=== PATIENT | male | born 1945 | race Caucasian/White ===

== ENCOUNTER 2021-07-31 15:10 | Emergency (ER) | payer MEDICARE, SELFPAY ==
[2021-07-31] VITALS (11 sets, daily range): BP systolic 110–187; BP diastolic 67–97; PULSE 49–71; RESP 16–36; TEMP 36.9; O2SAT 95–99
--- NOTE | 2021-07-31 16:05 | DI.US.S_ITS ---
PROCEDURE: US PERIPH VENOUS UP EXTREM LT INDICATIONS: LUMP/ ARM SWELLING TECHNIQUE: Real-time imaging, as well as color and pulse Doppler interrogation, was performed of the left upper extremity deep veins from the inferior neck to the antecubital fossa. COMPARISON: None. FINDINGS: Extensive left upper extremity deep venous thrombosis can be seen, involving the subclavian vein through the axillary vein involving the proximal basilic vein. Left axillary lymphadenopathy can be seen at the area of palpable abnormality. IMPRESSION: Extensive left upper extremity deep venous thrombosis can be seen. Enlarged left axillary lymph nodes are seen. Note: Concordant preliminary findings given by the aerial photographer upon the completion of the examination to Anival Cheng at 4:40 p.m. on July 31, 2021. Dictated by: Bobby Bahena M.D. on 07/31/2021 at 15:49 Approved by: Bobby Bahena M.D. on 07/31/2021 at 15:50
--- NOTE | 2021-07-31 16:06 | ED_ITS ---
HPI - Skin/Abscess/Foreign Bdy <Anival Cheng PA-C - Last Filed: 07/31/21 19:42> General Chief complaint: Skin/Abscess/Foreign Body Stated complaint: SWOLLEN LYMP NODE UNDER LEFT ARM PIT PAIN Time Seen by Provider: 07/31/21 15:57 Source: patient Mode of arrival: Ambulatory History of Present Illness HPI narrative: Patient presents to the ED complaining of swollen area under his left armpit that started 2 days ago. He noticed it getting progressively worse it is been slightly tender to touch no prior history no recent trauma reported no change in his weight. Related Data Previous Rx's Medication Instructions Recorded apixaban 5 mg (74 tabs) tablets in 5 mg PO BID #74 ea 07/31/21 a dose pack (EliPulsar DVT-PE Treat 30D Start) Allergies Allergy/AdvReac Type Severity Reaction Status Date / Time No Known Drug Allergies Allergy Unverified 07/31/21 14:42 Review of Systems <Anival Cheng PA-C - Last Filed: 07/31/21 19:42> Review of Systems ROS Unobtainable: All systems reviewed & are unremarkable except as noted in HPI and below Constitutional Constitutional: Denies chills, Denies fatigue, Denies fever(s), Denies frequent falls, Denies lethargy and Denies weakness Eyes Eyes: Denies change in vision, Denies eye discharge, Denies irritation and Denies loss of vision ENT Ears, Nose, Mouth, and Throat: Denies change in voice, Denies dizziness, Denies neck pain, Denies sore throat and Denies throat swelling Cardiovascular Cardiovascular: Denies chest pain, Denies irregular heart rhythm, Denies lightheadedness, Denies palpitations, Denies dyspnea, Denies dyspnea on exertion and Denies orthopnea Respiratory Respiratory: Denies cough, Denies dyspnea, Denies dyspnea on exertion and Denies wheezing Gastrointestinal Gastrointestinal: Denies abdominal pain, Denies change in bowel habits, Denies diarrhea, Denies nausea and Denies vomiting Genitourinary Genitourinary: Denies hematuria, Denies flank pain, Denies urinary incontinence and Denies urinary urgency Musculoskeletal Musculoskeletal: Denies back pain, Denies muscle weakness, Denies neck pain, Denies numbness and Denies tingling Integumentary/Breasts Skin/Breast: Reports furuncle, Denies pruritus, Denies erythema, Denies rash and Denies wounds Neurologic Neurologic: Denies behavioral changes, Denies confusion, Denies dizziness, Denies frequent falls, Denies loss of vision, Denies numbness, Denies tingling and Denies weakness Psychiatric Psychiatric: Denies anxiety, Denies behavioral changes, Denies confusion, Denies depression, Denies homicidal ideation and Denies suicidal ideation Endocrine Endocrine: Denies fatigue, Denies flushing and Denies palpitations Hematologic/Lymphatic Hematologic/Lymphatic: Denies easy bruising Allergic/Immunologic Allergic/Immunologic: Denies urticaria, Denies throat swelling and Denies wheezing Patient History <Anival Cheng PA-C - Last Filed: 07/31/21 19:42> Social History Smoking Status: Never smoker Smoking Status: Never smoker Exam <Anival Cheng PA-C - Last Filed: 07/31/21 19:42> Initial Vital Signs Initial Vital Signs: Vital Signs Temperature 98.4 F 07/31/21 15:14 Pulse Rate 50 L 07/31/21 15:14 Respiratory Rate 18 07/31/21 15:14 Blood Pressure 152/67 H 07/31/21 15:14 Pulse Oximetry 95 07/31/21 15:14 Const General: cooperative, healthy appearing, comfortable and well developed Nutritional Appearance: average body habitus Skin General: no rashes or lesions noted, elasticity normal and turgor normal Other: small swollen area under the left arm pit, no fluid wave noted, tender to touch,no discharge or evidence of infection. <Taylor Seay DO - Last Filed: 08/01/21 01:02> Initial Vital Signs Initial Vital Signs: Vital Signs Temperature 98.4 F 07/31/21 15:14 Pulse Rate 50 L 07/31/21 15:14 Respiratory Rate 18 07/31/21 15:14 Blood Pressure 152/67 H 07/31/21 15:14 Pulse Oximetry 95 07/31/21 15:14 Course <Anival Cheng PA-C - Last Filed: 07/31/21 19:42> Orders Ordered: ED Orders 07/31/21 16:05 US periph venous up extrem lt Stat 07/31/21 17:05 CT angio chest PE protocol Stat EKG-12 Lead Stat 07/31/21 17:10 BNP [NT-proBNP (BNP-Adult 18+)] Stat CBC Auto Diff [Complete Blood Count AUTO DIFF] Stat CMP [Comprehensive Metabolic Panel] Stat Troponin & CK Cardiac Panel Stat 07/31/21 19:40 COVID19 -Nasal swab/Pre-Proc Stat Discontinued Medications Apixaban (Apixaban 5 Mg Tablet) 5 mg PO NOW ONE Stop: 07/31/21 19:43 Last Admin: 07/31/21 19:54 Dose: 5 mg Documented by: [email or web address] Vital Signs Vital signs: Vital Signs - 8 hr 07/31/21 17:29 07/31/21 17:35 07/31/21 18:00 Pulse Rate 50 L 50 L 50 L Respiratory Rate 18 20 Blood Pressure 163/84 H 149/89 H Pulse Oximetry 98 97 95 07/31/21 18:30 07/31/21 18:50 07/31/21 19:00 Pulse Rate 50 L 50 L 50 L Respiratory Rate 18 22 25 H Blood Pressure 187/89 H Pulse Oximetry 95 97 95 07/31/21 19:01 07/31/21 19:30 07/31/21 19:31 Pulse Rate 50 L 49 L 50 L Respiratory Rate 22 31 H 36 H Blood Pressure 110/81 172/97 H Pulse Oximetry 96 95 95 07/31/21 19:58 Pulse Rate 71 Respiratory Rate 16 Blood Pressure 172/97 H Pulse Oximetry 99 <Taylor Seay, - Last Filed: 08/01/21 01:02> Orders Ordered: ED Orders 07/31/21 16:05 US periph venous up extrem lt Stat 07/31/21 17:05 CT angio chest PE protocol Stat EKG-12 Lead Stat 07/31/21 17:10 BNP [NT-proBNP (BNP-Adult 18+)] Stat CBC Auto Diff [Complete Blood Count AUTO DIFF] Stat CMP [Comprehensive Metabolic Panel] Stat Troponin & CK Cardiac Panel Stat 07/31/21 19:40 COVID19 -Nasal swab/Pre-Proc Stat Discontinued Medications Apixaban (Apixaban 5 Mg Tablet) 5 mg PO NOW ONE Stop: 07/31/21 19:43 Last Admin: 07/31/21 19:54 Dose: 5 mg Documented by: [email or web address] Vital Signs Vital signs: Vital Signs - 8 hr 07/31/21 17:29 07/31/21 17:35 07/31/21 18:00 Pulse Rate 50 L 50 L 50 L Respiratory Rate 18 20 Blood Pressure 163/84 H 149/89 H Pulse Oximetry 98 97 95 07/31/21 18:30 07/31/21 18:50 07/31/21 19:00 Pulse Rate 50 L 50 L 50 L Respiratory Rate 18 22 25 H Blood Pressure 187/89 H Pulse Oximetry 95 97 95 07/31/21 19:01 07/31/21 19:30 07/31/21 19:31 Pulse Rate 50 L 49 L 50 L Respiratory Rate 22 31 H 36 H Blood Pressure 110/81 172/97 H Pulse Oximetry 96 95 95 07/31/21 19:58 Pulse Rate 71 Respiratory Rate 16 Blood Pressure 172/97 H Pulse Oximetry 99 MDM - Skin/Abscess/Foreign Bdy <Anival Cheng PA-C - Last Filed: 07/31/21 19:42> Differential Diagnosis Differential diagnosis: Likely other Lab Data Result diagrams: 07/31/21 17:10 07/31/21 17:10 Labs: Lab Results 07/31/21 07/31/21 07/31/21 Range/Units 17:10 17:10 19:40 WBC 4.3 L (4.5-11.0) X10^3/uL RBC 4.58 (4.5-5.9) X10^6/uL Hgb 13.5 (13.5-17.5) g/dL Hct 39.8 L (41-53) % MCV 87.0 (80-100) fL MCH 29.4 (26-34) PG MCHC 33.8 (30-36) % RDW 14.5 (11.6-14.8) % Plt Count 159 (150-400) X10^3/uL Neut % (Auto) 57.2 (50-75) % Lymph % (Auto) 26.8 (25-40) % [place] % (Auto) 12.6 (3-14) % Eos % (Auto) 2.6 (2-4) % Baso % (Auto) 0.8 (0-2) % Neut # (Auto) 2500 (4933-3320) /uL Lymph # (Auto) 1200 (1617-2631) /uL [place] # (Auto) 500 (0-900) /uL Eos # (Auto) 100 (0-450) /uL Baso # (Auto) 0 (0-100) /uL Sodium 139 (137-145) mmol/L Potassium 4.0 (3.4-5.1) mmol/L Chloride 104 (98-107) mmol/L Carbon Dioxide 34 H (22-32) mmol/L BUN 15 (9-20) mg/dL Creatinine 0.78 (0.66-1.25) mg/dL Estimated GFR > 60.0 (>60) mL/min BUN/Creatinine Ratio 19.2 (6-22) Glucose 95 (80-110) mg/dL Calcium 8.8 (8.4-10.2) mg/dL Total Bilirubin 0.7 (0.2-1.3) mg/dL AST 30 (17-59) IU/L ALT 16 (<50) IU/L Alkaline Phosphatase 102 (38-126) U/L Total Creatine Kinase 205 H (55-170) U/L CK-MB (CK-2) 3.90 H (<2.37) ng/mL CK-MB (CK-2) Rel Index 1.9 (1.5-5.0) % Troponin I < 0.012 (0.01-0.034) ng/mL NT-Pro-B Natriuret Pep 266 (<450) pg/mL Total Protein 6.9 (6.3-8.2) g/dL Albumin 4.0 (3.5-5.0) g/dL Globulin 2.9 (1.7-4.1) g/dL Albumin/Globulin Ratio 1.4 (1.0-2.8) SARS-CoV-2 (PCR) Negative (Negative) Imaging Data US - DVT: Radiologist's Impression: PROCEDURE:? US PERIPH VENOUS UP EXTREM LT ? INDICATIONS:? LUMP/ ARM SWELLING ? TECHNIQUE:? Real-time imaging, as well as color and pulse Doppler interrogation, was performed of the left upper extremity deep veins from the inferior neck to the antecubital fossa.? ? COMPARISON:? None. ? FINDINGS:? Extensive left upper extremity deep venous thrombosis can be seen, involving the subclavian vein through the axillary vein involving the proximal basilic vein. ? Left axillary lymphadenopathy can be seen at the area of palpable abnormality. ? ? IMPRESSION:? Extensive left upper extremity deep venous thrombosis can be seen. ? Enlarged left axillary lymph nodes are seen. ? Note: Concordant preliminary findings given by the adjunct history instructor upon the completion of the examination to Anival Cheng at 4:40 p.m. on July 31, 2021. ? ? ? Dictated by: Bobby Bahena M.D. on 07/31/2021 at 15:49 ? ? Approved by: Bobby Bahena M.D. on 07/31/2021 at 15:50?? CTA-Chest: Radiologist's Impression: PROCEDURE:? CT ANGIO CHEST PE PROTOCOL ? INDICATIONS:? Bloodclot ? TECHNIQUE:? After the administration of intravenous contrast, 2 mm thick sections acquired from the pulmonary apices to the posterior costophrenic angles.? 3-dimensional maximum intensity projection (MIP) coronal and sagittal reformats were then acquired through the thorax.? For radiation dose reduction, the following was used:? automated exposure control, adjustment of mA and/or kV according to patient size.? ? COMPARISON:? None. ? FINDINGS:? Image quality:? Excellent.? ? Pulmonary arteries:? Pulmonary arteries are normal in size, and demonstrate no intraluminal filling defects to suggest central pulmonary embolism.? No convincing peripheral pulmonary embolus. ? Lungs and pleura:? There are scattered peripheral patches of ground-glass opacity and occasional bibasilar irregular septal thickening versus linear atelectatic changes.? There are no dense consolidations or pleural effusions.? The airways are patent.? Mild bilateral lower lung peribronchial thickening. ? Mediastinum:? Mild cardiomegaly.? Moderate coronary artery calcification.? Dual lead pacemaker present.? No intraventricular septal bowing.? Small pericardial effusion.? The aorta is normal caliber.? Proximal great vessels are normal.? The esophagus is normal without hiatal hernia. ? Bones and chest wall:? There is moderate fat stranding in the left axilla and enlargement of left axillary and subclavian vasculature.? Numerous lymph nodes are present.? There is mild overlying soft tissue swelling.? Left chest power pack is present.? No acute fractures or suspicious bone lesions.? Multilevel degenerative disc and endplate changes throughout the spine.? Diminutive thyroid gland. ? Abdomen:? Visualized upper abdominal solid organs appear normal in the early arterial phase of enhancement.? ? IMPRESSION:? ? 1. No visible central pulmonary emboli and no convincing peripheral emboli. ? 2. Mild cardiomegaly with small pericardial effusion.? No evidence of right heart strain. ? 3. Scattered minor peripheral ground-glass opacities and linear interstitial/septal thickening may be atelectatic changes, less likely peripheral ischemic changes.? No pleural effusion. ? 4. Soft tissue thickening and edema involving the left axilla and enlargement of left axillary vasculature consistent with known upper extremity thrombus. ? 5. Left-sided pacemaker present.? ? ? Dictated by: Leta Early M.D. on 07/31/2021 at 18:34 ? ? Approved by: Leta Early M.D. on 07/31/2021 at 18:48?? [facility] Narrative Medical decision making narrative: Patient was evaluated today for swelling of the left armpit. Ultrasound showed evidence of a thrombus formation from the subclavian to the left axillary vein. A CTA of the chest was ordered which confirmed the thrombus. Patient had cardiac enzymes and EKG which all appear to be within normal limits. A consult to the cardiology group of Dr. MEZA was contacted and as a result they were agreeable to to start the patient on anticoagulant therapy regimen and discharge the patient to follow up outpatient. After discussing the findings with the patient he was agreeable and will discharge him home start him on Eliquis 5 mg p.o. b.i.d. <Taylor Seay, DO - Last Filed: 08/01/21 01:02> Lab Data Labs: Lab Results 07/31/21 07/31/21 07/31/21 Range/Units 17:10 17:10 19:40 WBC 4.3 L (4.5-11.0) X10^3/uL RBC 4.58 (4.5-5.9) X10^6/uL Hgb 13.5 (13.5-17.5) g/dL Hct 39.8 L (41-53) % MCV 87.0 (80-100) fL MCH 29.4 (26-34) PG MCHC 33.8 (30-36) % RDW 14.5 (11.6-14.8) % Plt Count 159 (150-400) X10^3/uL Neut % (Auto) 57.2 (50-75) % Lymph % (Auto) 26.8 (25-40) % [place] % (Auto) 12.6 (3-14) % Eos % (Auto) 2.6 (2-4) % Baso % (Auto) 0.8 (0-2) % Neut # (Auto) 2500 (6519-9723) /uL Lymph # (Auto) 1200 (8855-4370) /uL [place] # (Auto) 500 (0-900) /uL Eos # (Auto) 100 (0-450) /uL Baso # (Auto) 0 (0-100) /uL Sodium 139 (137-145) mmol/L Potassium 4.0 (3.4-5.1) mmol/L Chloride 104 (98-107) mmol/L Carbon Dioxide 34 H (22-32) mmol/L BUN 15 (9-20) mg/dL Creatinine 0.78 (0.66-1.25) mg/dL Estimated GFR > 60.0 (>60) mL/min BUN/Creatinine Ratio 19.2 (6-22) Glucose 95 (80-110) mg/dL Calcium 8.8 (8.4-10.2) mg/dL Total Bilirubin 0.7 (0.2-1.3) mg/dL AST 30 (17-59) IU/L ALT 16 (<50) IU/L Alkaline Phosphatase 102 (38-126) U/L Total Creatine Kinase 205 H (55-170) U/L CK-MB (CK-2) 3.90 H (<2.37) ng/mL CK-MB (CK-2) Rel Index 1.9 (1.5-5.0) % Troponin I < 0.012 (0.01-0.034) ng/mL NT-Pro-B Natriuret Pep 266 (<450) pg/mL Total Protein 6.9 (6.3-8.2) g/dL Albumin 4.0 (3.5-5.0) g/dL Globulin 2.9 (1.7-4.1) g/dL Albumin/Globulin Ratio 1.4 (1.0-2.8) SARS-CoV-2 (PCR) Negative (Negative) Discharge Plan Departure Patient Disposition: Home Clinical Impression: Thrombus Instructions: DI for Deep Vein Thrombosis Activity Restrictions/Additional Instructions: The prescription for Eliquis was sent over to your pharmacy and you can begin taking that medication in the a.m. you can contact your PCP or Cardiology group for further follow-up or you can return to the emergency room for any further concerns. Prescriptions: New Eliquis DVT-PE Treat 30D Start 5 mg (74 tabs) tablets,dose pack 5 mg PO BID Qty: 74 0RF <Taylor Seay, DO - Last Filed: 08/01/21 01:02> Cosign ED Attending Lonnieature Attestation: I was immediately available in the department for consultation. Documentation has been reviewed. Patient case was discussed with myself. Imaging including ultrasound, CT and lab work was reviewed. Patient scoring for HESTIA and PESI reviewed. Patient appears appropropriate to initiate oral anticoagulation in the department. Discharged home with prescription and close follow-up arranged after discussion with Cardiology review of the recommendations as well.
--- NOTE | 2021-07-31 17:05 | DI.CT.S_ITS ---
PROCEDURE: CT ANGIO CHEST PE PROTOCOL INDICATIONS: Bloodclot TECHNIQUE: After the administration of intravenous contrast, 2 mm thick sections acquired from the pulmonary apices to the posterior costophrenic angles. 3-dimensional maximum intensity projection (MIP) coronal and sagittal reformats were then acquired through the thorax. For radiation dose reduction, the following was used: automated exposure control, adjustment of mA and/or kV according to patient size. COMPARISON: None. FINDINGS: Image quality: Excellent. Pulmonary arteries: Pulmonary arteries are normal in size, and demonstrate no intraluminal filling defects to suggest central pulmonary embolism. No convincing peripheral pulmonary embolus. Lungs and pleura: There are scattered peripheral patches of ground-glass opacity and occasional bibasilar irregular septal thickening versus linear atelectatic changes. There are no dense consolidations or pleural effusions. The airways are patent. Mild bilateral lower lung peribronchial thickening. Mediastinum: Mild cardiomegaly. Moderate coronary artery calcification. Dual lead pacemaker present. No intraventricular septal bowing. Small pericardial effusion. The aorta is normal caliber. Proximal great vessels are normal. The esophagus is normal without hiatal hernia. Bones and chest wall: There is moderate fat stranding in the left axilla and enlargement of left axillary and subclavian vasculature. Numerous lymph nodes are present. There is mild overlying soft tissue swelling. Left chest power pack is present. No acute fractures or suspicious bone lesions. Multilevel degenerative disc and endplate changes throughout the spine. Diminutive thyroid gland. Abdomen: Visualized upper abdominal solid organs appear normal in the early arterial phase of enhancement. IMPRESSION: 1. No visible central pulmonary emboli and no convincing peripheral emboli. 2. Mild cardiomegaly with small pericardial effusion. No evidence of right heart strain. 3. Scattered minor peripheral ground-glass opacities and linear interstitial/septal thickening may be atelectatic changes, less likely peripheral ischemic changes. No pleural effusion. 4. Soft tissue thickening and edema involving the left axilla and enlargement of left axillary vasculature consistent with known upper extremity thrombus. 5. Left-sided pacemaker present. Dictated by: Leta Early M.D. on 07/31/2021 at 18:34 Approved by: Leta Early M.D. on 07/31/2021 at 18:48
[2021-07-31 17:23] LABS: Add Manual Diff / Slide Review NO; Basophils Absolute Auto 0 /uL (0-100); Basophils Percent Auto 0.8 % (0-2); Eosinophils Absolute Auto 100 /uL (0-450); Eosinophils Percent Auto 2.6 % (2-4); Hematocrit 39.8 % (41-53); Hemoglobin 13.5 g/dL (13.5-17.5); Lymphocytes Absolute Auto 1200 /uL (1100-4500); Lymphocytes Percent Auto 26.8 % (25-40); Mean Corpuscular HGB Conc 33.8 % (30-36); Mean Corpuscular Hemoglobin 29.4 PG (26-34); Monocytes Absolute Auto 500 /uL (0-900); Monocytes Percent Auto 12.6 % (3-14); Neutrophils Absolute Auto 2500 /uL (1500-7000); Neutrophils Percent Auto 57.2 % (50-75); Platelet Count 159 X10^3/uL (150-400); Red Blood Cell Count 4.58 X10^6/uL (4.5-5.9); Red Cell Distribution Width 14.5 % (11.6-14.8); White Blood Cell Count 4.3 X10^3/uL (4.5-11.0)
[2021-07-31 17:34] LABS: BUN Creatinine Ratio 19.2 (6-22); Blood Urea Nitrogen 15 mg/dL (9-20); Carbon Dioxide 34 mmol/L (22-32); Chloride 104 mmol/L (98-107); Creatine Kinase 205 U/L (55-170); Estimated Glomerular Filt Rate > 60.0 mL/min (>60); Glucose 95 mg/dL (80-110); Sodium 139 mmol/L (137-145)
[2021-07-31 17:35] LABS: Alanine Aminotransferase 16 IU/L (<50); Albumin Globulin Ratio 1.4 (1.0-2.8); Alkaline Phosphatase 102 U/L (38-126); Aspartate Aminotransferase 30 IU/L (17-59); Bilirubin Total 0.7 mg/dL (0.2-1.3); Calcium 8.8 mg/dL (8.4-10.2); Globulin 2.9 g/dL (1.7-4.1); HEMOLYSIS < 15 (0-50); Total Protein 6.9 g/dL (6.3-8.2)
[2021-07-31 17:46] LABS: NT-proBNP (BNP-Adult 18+) 266 pg/mL (<450); Troponin I < 0.012 ng/mL (0.01-0.034)
[2021-07-31 17:49] LABS: CKMB % Relative Index 1.9 % (1.5-5.0)
[2021-07-31] MEDS: APIXABAN 5 MG TABLET PO (19:54)
[2021-07-31 20:16] LABS: COVID19 -Nasal RAPID Negative (Negative)
== END 2021-07-31 19:58 | disposition home or self-care (01) ==
PROVIDERS: Emergency Provider Physician Assistant
DX: I82.890 Acute embolism and thrombosis of other specified veins (principal); R07.9 Chest pain, unspecified; Z20.822 Contact with and (suspected) exposure to COVID-19
CPT/HCPCS: 36415; 71275; 80053; 82550; 82553; 83880; 84484; 85025; 87635; 93005; 93010; 93971; 99284; C9803; Q9967

== ENCOUNTER 2022-09-18 14:08 | Emergency (ER) | payer MEDICARE, SELFPAY ==
[2022-09-18] VITALS (13 sets, daily range): BP systolic 127–178; BP diastolic 81–113; PULSE 63–81; RESP 12–32; TEMP 36.7; O2SAT 91–95; BMI 26.1
--- NOTE | 2022-09-18 14:18 | DI.RAD.S_ITS ---
PROCEDURE: XR CHEST 1V INDICATIONS: Shortness of breath TECHNIQUE: One view of the chest was acquired. COMPARISON: None. FINDINGS: Surgical changes and devices: Left-sided cardiac pacer device is in place. Surgical clips in the right axilla. Lungs and pleura: Mild diffuse interstitial prominence. No focal consolidation. No pleural effusions or pneumothorax. Mediastinum: Mediastinal contours appear normal. Heart size is enlarged. Bones and chest wall: No suspicious bony lesions. Overlying soft tissues appear unremarkable. IMPRESSION: Cardiomegaly with mild diffuse interstitial prominence. Findings may represent early pulmonary edema/CHF. Infectious or inflammatory process not excluded if clinically appropriate. No focal consolidation. Dictated by: Minh Saini M.D. on 09/18/2022 at 16:16 Approved by: Minh Saini M.D. on 09/18/2022 at 16:18
--- NOTE | 2022-09-18 14:29 | ED.SOB ---
HPI - SOB/Dyspnea General Chief Complaint: Shortness of Breath/Dyspnea Stated Complaint: SOB, hx blood clot, sent from primary Time Seen by Provider: 09/18/22 14:24 Source: patient Mode of arrival: Ambulatory Limitations: no limitations History of Present Illness HPI Narrative: This 69-year-old gentleman has a history of AFib, and history of pacemaker. He developed a left upper extremity DVT when the pacemaker was placed. A Watchman was placed about 7 months ago. Eliquis was stopped about 2 weeks ago. He has no history of NE, no history of CHF. He passed a nuclear stress test just a few weeks ago. He is developed dyspnea. Dyspnea seemed to increase about 3 days ago, any more severe in the last 24 hours. He has significant dyspnea with any degree of exertion. He is not having chest pain or palpitations. He denies orthopnea or peripheral edema. He denies hemoptysis. He has not experienced syncope. He is no dyspnea at rest. He denies recent illness. He has no headache, rhinorrhea or sore throat. He is not coughing. He has no fever or chills. He developed significant dyspnea this morning, simply my making the bed. Related Data Previous Rx's Medication Instructions Recorded apixaban 5 mg (74 tabs) tablets in 5 mg PO BID #74 ea 07/31/21 a dose pack (Eliquis DVT-PE Treat 30D Start) furosemide 20 mg tablet (Lasix) 20 mg PO DAILY #30 tabs 09/18/22 Allergies Allergy/AdvReac Type Severity Reaction Status Date / Time No Known Drug Allergies Allergy Verified 09/18/22 14:23 Review of Systems Review of Systems ROS Unobtainable: All systems reviewed & are unremarkable except as noted in HPI and below Constitutional Constitutional: Denies anorexia, Denies body ache(s), Denies fatigue, Denies fever(s) and Denies headache(s) Eyes Eyes: Denies change in vision ENT Ears, Nose, Mouth, and Throat: Denies vertigo, Denies dizziness, Denies facial pain, Denies headache(s), Denies nasal congestion and Denies sore throat Cardiovascular Cardiovascular: Denies chest pain, Denies syncope, Denies pedal edema, Denies irregular heart rhythm, Denies leg edema and Reports dyspnea on exertion Respiratory Respiratory: Denies chest congestion, Denies cough and Reports dyspnea on exertion Gastrointestinal Gastrointestinal: Denies abdominal pain Genitourinary Genitourinary: Denies dysuria Musculoskeletal Musculoskeletal: Denies back pain, Denies joint swelling and Denies myalgias Integumentary/Breasts Skin/Breast: Denies lesions and Denies rash Neurologic Neurologic: Denies vertigo, Denies dizziness, Denies syncope, Denies headache(s) and Denies localized weakness Psychiatric Psychiatric: Reports system reviewed and no additional complaints, except as documented Endocrine Endocrine: Denies fatigue Hematologic/Lymphatic Hematologic/Lymphatic: Reports as per HPI On Anticoagulants: No Patient History Medical History (Updated 09/18/22 @ 17:45 by Jay Villagomez MD) Afib DVT (deep venous thrombosis) Pacemaker Presence of Watchman left atrial appendage closure device Social History Smoking Status: Never smoker Smoking Status: Never smoker Substance Use Type: does not use Exam Initial Vital Signs Initial Vital Signs: Vital Signs Pulse Rate 80 09/18/22 14:14 Blood Pressure 150/81 H 09/18/22 14:14 Pulse Oximetry 95 09/18/22 14:14 Const General: cooperative, healthy appearing, comfortable, well developed and well groomed [facility] Head: normal to inspection, normocephalic and atraumatic Mouth: oral mucosae normal Eyes General: Yes appearance normal, both eyes and all related structures Neck Neck: normal visual inspection and No JVD Chest Chest: normal inspection of the chest Resp Effort & Inspection: normal respiratory effort Auscultation: clear to auscultation bilaterally Cardio Rate: regular rate Rhythm: regular rhythm Heart Sounds: S1 normal, S2 normal and no murmurs GI Palpation: soft and No tender Back/Spine/Pelvis Back: normal to inspection Skin General: no rashes or lesions noted Neuro General: patient alert, patient awake, patient oriented x3 and no focal motor deficits Extrem General: normal to inspection, no calf tenderness and No edema Psych Mental Status: mental status grossly normal Course Course Course Narrative: Chest x-ray suggests pulmonary edema. BNP is noted be elevated. The patient diuresed over 1 L of urine after receiving Lasix IV. Has improved significantly. He will be discharged on Lasix 20 mg daily. He is going to contact his senior sql server database developer tomorrow for follow-up. Orders Ordered: ED Orders 09/18/22 14:18 XR chest 1V Stat COVID19 -Nasal RAPID Stat EKG-12 Lead Stat Measure peak expiratory flow ONCE RT Consult Eval and Treat NOW 09/18/22 14:20 Respiratory Panel (Film Array) Stat 09/18/22 14:27 Complete Blood Count AUTO DIFF Stat Comprehensive Metabolic Panel Stat D Dimer Stat Lactate (Lactic Acid) Stat NT-proBNP (BNP-Adult 18+) Stat Prothrombin Time INR Stat Troponin I Stat Discontinued Medications Furosemide (Furosemide 40 Mg/4 Ml Vial) 40 mg IV NOW ONE Stop: 09/18/22 15:51 Last Admin: 09/18/22 16:00 Dose: 40 mg Documented By: GOLD Vital Signs Vital signs: Vital Signs - 8 hr 09/18/22 14:23 09/18/22 14:14 09/18/22 14:14 Temperature 98.1 F Pulse Rate 75 80 Respiratory Rate 13 Blood Pressure 150/81 H 150/81 H Pulse Oximetry 95 95 Oxygen Delivery Method Room Air 09/18/22 14:15 09/18/22 14:15 09/18/22 14:30 Temperature Pulse Rate 70 81 Respiratory Rate 25 H Blood Pressure 168/109 H Pulse Oximetry 95 91 Oxygen Delivery Method 09/18/22 14:31 09/18/22 14:31 Temperature Pulse Rate 80 Respiratory Rate 32 H Blood Pressure 150/101 H Pulse Oximetry 91 Oxygen Delivery Method MDM - SOB/Dyspnea Lab Data 09/18/22 14:27 09/18/22 14:27 Labs: Lab Results 09/18/22 09/18/22 09/18/22 Range/Units 14:20 14:27 14:27 WBC 3.2 L (4.5-11.0) X10^3/uL RBC 4.30 L (4.5-5.9) X10^6/uL Hgb 12.5 L (13.5-17.5) g/dL Hct 36.4 L (41-53) % MCV 84.8 (80-100) fL MCH 29.1 (26-34) PG MCHC 34.3 (30-36) % RDW 14.1 (11.6-14.8) % Plt Count 128 L (150-400) X10^3/uL Neut % (Auto) 59.7 (50-75) % Lymph % (Auto) 28.6 (25-40) % [place] % (Auto) 8.8 (3-14) % Eos % (Auto) 2.1 (2-4) % Baso % (Auto) 0.8 (0-2) % Neut # (Auto) 1900 (9097-1678) /uL Lymph # (Auto) 900 L (2581-8303) /uL [place] # (Auto) 300 (0-900) /uL Eos # (Auto) 100 (0-450) /uL Baso # (Auto) 0 (0-100) /uL PT 14.5 H (10.1-12.7) SECONDS INR 1.3 (0.9-1.3) D-Dimer (<500) ng/ml Sodium (137-145) mmol/L Potassium (3.4-5.1) mmol/L Chloride (98-107) mmol/L Carbon Dioxide (22-32) mmol/L BUN (9-20) mg/dL Creatinine (0.66-1.25) mg/dL Estimated GFR (>60) mL/min BUN/Creatinine Ratio (6-22) Glucose (80-110) mg/dL Lactate (0.7-2.1) mmol/L Calcium (8.4-10.2) mg/dL Total Bilirubin (0.2-1.3) mg/dL AST (17-59) IU/L ALT (<50) IU/L Alkaline Phosphatase (38-126) U/L Troponin I (0.01-0.034) ng/mL NT-Pro-B Natriuret Pep (<450) pg/mL Total Protein (6.3-8.2) g/dL Albumin (3.5-5.0) g/dL Globulin (1.7-4.1) g/dL Albumin/Globulin Ratio (1.0-2.8) Chlamy pneumoniae PCR Not detected (Not Detect) Adenovirus (PCR) Not detected (Not Detect) B. pertussis DNA (PCR) Not detected (Not Detecte) B.parapertussis DNA PCR Not detected (Not Detecte) Coronavirus OC43 (PCR) Not detected (Not Detect) Coronavirus HKU1 (PCR) Not detected (Not Detect) Coronavirus 229E (PCR) Not detected (Not Detect) SARS-CoV-2 (PCR) Not detected (Not Detecte) Coronavirus NL63 (PCR) Not detected (Not Detect) Human Metapneumovir PCR Not detected (Not Detect) Influenza Type A (PCR) Not detected (Not Detect) Influenza Type B (PCR) Not detected (Not Detect) M. pneumoniae (PCR) Not detected (Not Detect) Parainfluenza 1 (PCR) Not detected (Not Detect) Parainfluenza 2 (PCR) Not detected (Not Detect) Parainfluenza 3 (PCR) Not detected (Not Detect) Parainfluenza 4 (PCR) Not detected (Not Detect) RSV (PCR) Not detected (Not Detect) Entero/Rhino (PCR) Not detected (Not Detect) 09/18/22 09/18/22 09/18/22 Range/Units 14:27 14:27 14:27 WBC (4.5-11.0) X10^3/uL RBC (4.5-5.9) X10^6/uL Hgb (13.5-17.5) g/dL Hct (41-53) % MCV (80-100) fL MCH (26-34) PG MCHC (30-36) % RDW (11.6-14.8) % Plt Count (150-400) X10^3/uL Neut % (Auto) (50-75) % Lymph % (Auto) (25-40) % [place] % (Auto) (3-14) % Eos % (Auto) (2-4) % Baso % (Auto) (0-2) % Neut # (Auto) (4248-0155) /uL Lymph # (Auto) (4352-6616) /uL [place] # (Auto) (0-900) /uL Eos # (Auto) (0-450) /uL Baso # (Auto) (0-100) /uL PT (10.1-12.7) SECONDS INR (0.9-1.3) D-Dimer 661 H (<500) ng/ml Sodium 140 (137-145) mmol/L Potassium 3.5 (3.4-5.1) mmol/L Chloride 107 (98-107) mmol/L Carbon Dioxide 26 (22-32) mmol/L BUN 17 (9-20) mg/dL Creatinine 0.87 (0.66-1.25) mg/dL Estimated GFR > 60 (>60) mL/min BUN/Creatinine Ratio 19.5 (6-22) Glucose 135 H (80-110) mg/dL Lactate 1.3 (0.7-2.1) mmol/L Calcium 8.3 L (8.4-10.2) mg/dL Total Bilirubin 0.7 (0.2-1.3) mg/dL AST 28 (17-59) IU/L ALT 33 (<50) IU/L Alkaline Phosphatase 109 (38-126) U/L Troponin I 0.012 (0.01-0.034) ng/mL NT-Pro-B Natriuret Pep 4260 H (<450) pg/mL Total Protein 6.0 L (6.3-8.2) g/dL Albumin 3.6 (3.5-5.0) g/dL Globulin 2.4 (1.7-4.1) g/dL Albumin/Globulin Ratio 1.5 (1.0-2.8) Chlamy pneumoniae PCR (Not Detect) Adenovirus (PCR) (Not Detect) B. pertussis DNA (PCR) (Not Detecte) B.parapertussis DNA PCR (Not Detecte) Coronavirus OC43 (PCR) (Not Detect) Coronavirus HKU1 (PCR) (Not Detect) Coronavirus 229E (PCR) (Not Detect) SARS-CoV-2 (PCR) (Not Detecte) Coronavirus NL63 (PCR) (Not Detect) Human Metapneumovir PCR (Not Detect) Influenza Type A (PCR) (Not Detect) Influenza Type B (PCR) (Not Detect) M. pneumoniae (PCR) (Not Detect) Parainfluenza 1 (PCR) (Not Detect) Parainfluenza 2 (PCR) (Not Detect) Parainfluenza 3 (PCR) (Not Detect) Parainfluenza 4 (PCR) (Not Detect) RSV (PCR) (Not Detect) Entero/Rhino (PCR) (Not Detect) Imaging Data Chest x-ray: Radiologist's Impression: ?Cardiomegaly with mild diffuse interstitial prominence.? Findings may represent early pulmonary edema/CHF.? Infectious or inflammatory process not excluded if clinically appropriate.? No focal consolidation. ECG Data Attestation: I personally reviewed and interpreted this ECG as follows: (AFib with ventricular escape complexes. Rate 76 beats per minute. Nonspecific ST T wave changes. No ST elevation.) Discharge Plan Departure Patient Disposition: Home Clinical Impression: Congestive heart failure Instructions: DI for Heart Failure Activity Restrictions/Additional Instructions: Lasix 20 mg daily as prescribed. Assure you have potassium containing foods daily as we discussed. Contact your senior sql server database developer tomorrow to arrange follow-up. Your senior sql server database developer will likely want an echocardiogram to guide treatment, medications decisions. When you contact your senior sql server database developer: Chest x-ray is significant for cardiomegaly, and pulmonary edema. No significant changes on EKG. Troponin is normal. BNP 4260. No other concerning lab abnormalities. Return here as necessary. Prescriptions: New furosemide [Lasix] 20 mg tablet 20 mg PO DAILY Qty: 30 0RF No Action Taylor DVT-PE Treat 30D Start 5 mg (74 tabs) tablets,dose pack 5 mg PO BID Qty: 74 0RF Stand Alone Forms: Patient Portal/API
[2022-09-18 14:44] LABS: INR 1.3 (0.9-1.3); Prothrombin Time 14.5 SECONDS (10.1-12.7)
[2022-09-18 14:48] LABS: Add Manual Diff / Slide Review NO; Basophils Absolute Auto 0 /uL (0-100); Basophils Percent Auto 0.8 % (0-2); Eosinophils Absolute Auto 100 /uL (0-450); Eosinophils Percent Auto 2.1 % (2-4); Hematocrit 36.4 % (41-53); Hemoglobin 12.5 g/dL (13.5-17.5); Lymphocytes Absolute Auto 900 /uL (1100-4500); Lymphocytes Percent Auto 28.6 % (25-40); Mean Corpuscular HGB Conc 34.3 % (30-36); Mean Corpuscular Hemoglobin 29.1 PG (26-34); Mean Corpuscular Volume 84.8 fL (80-100); Monocytes Absolute Auto 300 /uL (0-900); Monocytes Percent Auto 8.8 % (3-14); Neutrophils Absolute Auto 1900 /uL (1500-7000); Neutrophils Percent Auto 59.7 % (50-75); Platelet Count 128 X10^3/uL (150-400); Red Cell Distribution Width 14.1 % (11.6-14.8); White Blood Cell Count 3.2 X10^3/uL (4.5-11.0)
[2022-09-18 14:49] LABS: Alanine Aminotransferase 33 IU/L (<50); Albumin 3.6 g/dL (3.5-5.0); Albumin Globulin Ratio 1.5 (1.0-2.8); Alkaline Phosphatase 109 U/L (38-126); Aspartate Aminotransferase 28 IU/L (17-59); BUN Creatinine Ratio 19.5 (6-22); Bilirubin Total 0.7 mg/dL (0.2-1.3); Blood Urea Nitrogen 17 mg/dL (9-20); Calcium 8.3 mg/dL (8.4-10.2); Carbon Dioxide 26 mmol/L (22-32); Chloride 107 mmol/L (98-107); Estimated Glomerular Filt Rate > 60 mL/min (>60); Globulin 2.4 g/dL (1.7-4.1); Glucose 135 mg/dL (80-110); HEMOLYSIS < 15 (0-50); Potassium 3.5 mmol/L (3.4-5.1); Sodium 140 mmol/L (137-145)
[2022-09-18 14:50] LABS: Lactate (Lactic Acid) 1.3 mmol/L (0.7-2.1)
[2022-09-18 14:52] LABS: D Dimer 661 ng/ml (<500)
[2022-09-18 15:01] LABS: NT-proBNP (BNP-Adult 18+) 4260 pg/mL (<450); Troponin I 0.012 ng/mL (0.01-0.034)
[2022-09-18 15:29] LABS: Adenovirus Not Detected (Not Detect); B. parapertussis Not Detected (Not Detecte); Bordetella pertussis Not Detected (Not Detecte); Chlamydophila pneumoniae Not Detected (Not Detect); Coronavirus 229E Not Detected (Not Detect); Coronavirus HKU1 Not Detected (Not Detect); Coronavirus NL 63 Not Detected (Not Detect); Coronavirus OC43 Not Detected (Not Detect); Human Metapneumovirus Not Detected (Not Detect); Human Rhinovirus/Enterovirus Not Detected (Not Detect); Influenza A Not Detected (Not Detect); Influenza B Not Detected (Not Detect); Mycoplasma pneumoniae Not Detected (Not Detect); Parainfluenza Virus 1 Not Detected (Not Detect); Parainfluenza Virus 2 Not Detected (Not Detect); Parainfluenza Virus 3 Not Detected (Not Detect); Parainfluenza Virus 4 Not Detected (Not Detect); Respiratory Syncytial Virus Not Detected (Not Detect); SARS- CoV-2 Not Detected (Not Detecte)
[2022-09-18] MEDS: FUROSEMIDE 40 MG/4 ML VIAL IV (16:00)
== END 2022-09-18 18:00 | disposition home or self-care (01) ==
PROVIDERS: Emergency Provider Emergency Medicine
DX: I50.9 Heart failure, unspecified (principal); I48.91 Unspecified atrial fibrillation; R06.02 Shortness of breath; Z95.0 Presence of cardiac pacemaker; Z20.822 Contact with and (suspected) exposure to COVID-19
CPT/HCPCS: 36415; 71045; 80053; 83605; 83880; 84484; 85025; 85379; 85610; 87633; 93005; 96374; 99284; J1940